=== PATIENT | male | born 1965 | race Caucasian/White ===

== ENCOUNTER → 2018-04-26 | Day surgery (SDC) | payer OTHER, BC ==
[~2018-04-26] MED LIST: Lactated Ringers 1,000 ML IV SCH; Propofol 200 MG/20 ML SDV IV ONE
[2018-04-26 11:20] VITALS: BP 121/56
--- NOTE | 2018-04-26 12:06 | OR ---
DATE OF OPERATION: 04/26/2018 PREOPERATIVE DIAGNOSIS: FAMILY HISTORY OF COLONOSCOPY. POSTOPERATIVE DIAGNOSIS: FAMILY HISTORY OF COLONOSCOPY. SURGEON: Jose Carlos Harmon MD PROCEDURE: FULL-LENGTH COLONOSCOPY. 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 COMPLICATIONS: None. SPECIMEN: None. FINDINGS: 1. Full-length colonoscopy. 2. Distal proctitis, perianal. RECOMMENDATIONS: Follow up colonoscopy every 5 years. INDICATIONS: The patient had a brother recently diagnosed with colon cancer. He has never had a prior procedure. He elected to proceed. DESCRIPTION OF PROCEDURE: The patient was prepped and draped, placed in the left lateral decubitus position. A lubricated Olympus colonoscope was inserted and easily advanced to the cecum. We were able to directly visualize the ileocecal valve and appendiceal orifice. The bowel prep was adequate. Upon withdrawal of the scope, the cecum, ascending, transverse colon were completely benign. Throughout the entire left colon, I could find no signs of any polyps, mass, ulceration, or bleeding sites. No vascular abnormalities or signs of colitis. No significant diverticula. The rectal vault was benign. On retroflexion, the patient had some perianal colitis, very mild. We did two biopsies of the most affected area. Air was then suctioned from the colon. The scope was removed without complication. CHEO/ANNELIESE /[id number]
== END ==
LOC: CC.SDS 09:28
PROVIDERS: ATTEND Family Medicine
DX: Z12.11 Encounter for screening for malignant neoplasm of colon (principal); K52.9 Noninfective gastroenteritis and colitis, unspecified; K62.89 Other specified diseases of anus and rectum; E78.5 Hyperlipidemia, unspecified; I12.9 Hypertensive chronic kidney disease with stage 1 through stage 4 chronic kidney disease, or unspecified chronic kidney disease; N18.9 Chronic kidney disease, unspecified; Z80.0 Family history of malignant neoplasm of digestive organs; Z94.0 Kidney transplant status; Z88.1 Allergy status to other antibiotic agents; Z79.82 Long term (current) use of aspirin; Z79.899 Other long term (current) drug therapy
CPT/HCPCS: 45380; J2704; J7120